=== PATIENT | female | born 1945 | race Caucasian/White ===

== ENCOUNTER → 2016-12-17 | Outpatient (CLI) | payer MEDICARE, BC ==
[~2016-12-17] MED LIST: ATEN1TAB3 PO; ATEN1TAB4 PO; CALC-53 PO; CYAN500T17 PO; DILT90TA PO; FAMO20TA5 PO; FISH1CAP PO; GABA600T2 PO; GLUC1TAB71 PO; LEVO100T5 PO; MAGN250T10 PO; MULT-212 PO; NAPR500T3 PO; OXYB1PAT4 TD; POTA10TA5 PO
--- NOTE | 2016-12-17 14:42 | KCIC ---
COMPLETE RENAL ULTRASOUND Indication: Left renal cyst. Comparison: MR abdomen with and without contrast June 07, 2016.. Procedure: Transabdominal ultrasound images are obtained of the kidneys and bladder. Findings: The kidneys demonstrate normal cortical echotexture. Corticomedullary differentiation is preserved. There is no hydronephrosis. The right kidney measures 9.1 cm. The left kidney measures 8.5 cm. In correlation with the prior MRI, complex septated cyst in the left kidney is identified sonographically and measures approximately 3.9 x 2.7 x 3.4 cm. There is increased through transmission. Single color Doppler image interrogating the lesion appears negative. Lesion is similar in size to the prior study allowing for differences in modality. The bladder appears normal. IMPRESSION: Complex septated cyst of the left kidney. Recommend renal ultrasound follow-up in 6 months. Electronically signed by: Chano Brady MD (12/17/2016 2:39 PM)
== END | disposition home or self-care (01) ==
LOC: KCIC US 10:19
PROVIDERS: ATTEND Family Medicine
DX: N28.1 Cyst of kidney, acquired (principal)
CPT/HCPCS: 76770

== ENCOUNTER → 2017-05-02 | Outpatient (CLI) | payer MEDICARE, BC ==
[~2017-05-02] MED LIST changes: -NAPR500T3 PO; +NAPR500T4 PO
--- NOTE | 2017-05-02 14:25 | KCIC ---
History: Routine screening. Technique: Bilateral digital mammographic routine views were obtained with CAD - computer aided detection. Comparison: April 20, 2014 and April 23, 2016. Findings: Breast Tissue Density C : The breast tissue is heterogeneously dense. Scattered fibroglandular elements may obscure underlying pathology. There are no suspicious masses, microcalcifications or areas of architectural distortion. Impression: No suspicious findings. BI-RADS Category 1: Negative. Normal interval followup. Your mammogram demonstrates that you have dense breast tissue, which could hide abnormalities, and if you have other risk factors for breast cancer that have been identified, you might benefit from supplemental screening tests that may be suggested by your ordering physician. Dense breast tissue, in and of itself, is a relatively common condition. This information is not provided to cause undue concern, but rather to raise your awareness and to promote discussion with your physician regarding the presence of other risk factors, in addition to dense breast tissue. A report of your mammography results will be sent to you and your physician. You should contact your physician if you have any questions or concerns regarding this report. A mammogram does not have 100% sensitivity and therefore a negative imaging study should not delay further work up of a suspicious abnormality. The patient will receive a letter with the results in the mail. Patient information is entered into the reminder system with a target due date for the next screening mammogram. The patient will receive a reminder. "Our facility is accredited by the [employer] Mammography Program." Electronically signed by: George Mcnally III, MD (05/02/2017 2:21 PM) [id number]
== END | disposition home or self-care (01) ==
LOC: KCIC MAMMO 10:16
PROVIDERS: ATTEND Family Medicine
DX: Z12.31 Encounter for screening mammogram for malignant neoplasm of breast (principal)
CPT/HCPCS: G0202; 77067

== ENCOUNTER → 2017-06-18 | Outpatient (CLI) | payer MEDICARE, BC ==
--- NOTE | 2017-06-18 13:59 | KCIC ---
COMPLETE RENAL ULTRASOUND Indication: Six-month follow-up of renal cyst. Comparison: Renal ultrasound, December 17, 2016. Procedure: Transabdominal ultrasound images are obtained of the kidneys and bladder. Findings: The kidneys demonstrate normal cortical echotexture. Corticomedullary differentiation is preserved. There is no hydronephrosis. The right kidney measures 9.3 cm. The left kidney measures 8.4 cm. In the left kidney there is a septated cyst measuring 3.4 x 3.4 x 3.2 cm. On prior study the cyst measured 3.9 x 2.7 x 3.4 cm. Allowing for differences in how the cyst was measured, there is no significant change. There is increased through transmission. Color Doppler interrogation remains negative. The urinary bladder is unremarkable. Ureteral jets are not seen. The IVC is patent. Proximal abdominal aorta is normal in caliber, remainder is obscured. IMPRESSION: No significant change of septated cyst of the left kidney. Recommend ultrasound follow-up in 6-12 months. Electronically signed by: Chano Brady MD (06/18/2017 1:56 PM) [id number]
== END | disposition home or self-care (01) ==
LOC: KCIC US 12:09
PROVIDERS: ATTEND Family Medicine
DX: N28.1 Cyst of kidney, acquired (principal)
CPT/HCPCS: 76770

== ENCOUNTER → 2017-12-10 | Outpatient (CLI) | payer MEDICARE, BC | END | disposition home or self-care (01) | LOC: KCIC US 10:57 | DX: N28.1 Cyst of kidney, acquired (principal) | CPT/HCPCS: 76770 ==

== ENCOUNTER → 2018-02-09 | Outpatient (CLI) | payer MEDICARE, BC ==
[~2018-02-09] MED LIST changes: +NAPR-514 PO; -NAPR500T4 PO; +POTA10TA12 PO; -POTA10TA5 PO
--- NOTE | 2018-02-09 15:27 | KCIC ---
MRI Cervical Spine Without Contrast History: Cervical pain, neck pain, right arm and shoulder pain, symptoms for a few months COMPARISON: Limited images from Nov 08 2010 exam although the entirety of the exam not available for review Technique: Multiplanar, multi sequential noncontrast MR imaging was performed of the cervical spine. Findings: There is some motion degradation. Cervical cord caliber is within normal limits without convincing focal signal abnormality. There is more advanced degenerative disc disease C5-C6 and to a somewhat lesser degree at C4-5 and C6-7. There is now mild grade 1 anterior spondylolisthesis at C5-C6. Cervical vertebral body stature is overall adequate. There is trace posterior C4-5 and C5-C6 endplate edema likely reactive/degenerative in etiology. There is no new significant abnormality of the cervical medullary junction. C2-C3: Neural foramina and spinal canal are adequate. There is right facet degenerative change. C3-C4: There is fairly severe right and mild left facet degenerative change. There is right uncovertebral degenerative change. There is mild narrowing of the right neural foramen, left neural foramen adequate. Spinal canal is overall adequate. C4-C5: There is minimal disc osteophyte complex is mild buckling of the ligamentum flavum. Central canal is borderline about 10 mm. There is right greater than left facet degenerative change, also right uncovertebral degenerative change. Neural foramina are mild significantly narrowed. C5-C6: There is fairly severe facet degenerative change bilaterally. There is buckling of the ligamentum flavum. There is minimal disc osteophyte complex. Central canal is narrowed to about 8 to 9 mm. Neural foramina are poorly characterized in part from motion, probable at least moderate narrowing of the left. C6-C7: There is minimal disc osteophyte complex. Spinal canal is adequate. There is right uncovertebral degenerative change, likely mild to moderate narrowing of the right neural foramen. Left neural foramen is adequate. C7-T1: Spinal canal and neural foramina are adequate. Impression: 1. Exam is degraded by some motion. There is mild spinal stenosis C5-C6. Neural foramina are poorly characterized due to motion, probable at least moderate narrowing on the left at C5-C6 and mild to moderate narrowing on the right at C6-7 in part from facet and uncovertebral degenerative change. There is degenerative disc disease greatest at C5-C6 and to a somewhat lesser degree at C4-5 and C6-7. Electronically signed by: Sinan Pagan MD (02/09/2018 3:23 PM) [facility]
== END | disposition home or self-care (01) ==
LOC: KCIC MRI 11:30
PROVIDERS: ATTEND Family Medicine
DX: M48.02 Spinal stenosis, cervical region (principal); M50.323 Other cervical disc degeneration at C6-C7 level; M25.78 Osteophyte, vertebrae; I25.10 Atherosclerotic heart disease of native coronary artery without angina pectoris
CPT/HCPCS: 72141

== ENCOUNTER → 2018-03-17 | Outpatient (CLI) | payer MEDICARE, BC ==
[~2018-03-17] MED LIST changes: +ALPR0.5T6 PO; +ASCO500C PO; +BIOT300T PO; +ECHI400C12 PO; +HYDR-2766 PO; +IOHEXOL 180 MG/ML 10 ML VIAL. ONE; +LEVO75TA5 PO; +LUTE1CAP5 PO; +TRAM50TA PO; +VITA400C37 PO; +ZINC50TA2 PO; +methylPREDNISolone ACETATE 40 MG/ML VIAL. ONE; +methylPREDNISolone ACETATE 80 MG/ML VIAL. ONE
--- NOTE | 2018-03-17 14:25 | PAIN ---
DATE OF SERVICE: 03/17/2018 INITIAL CONSULTATION FOR PAIN CLINIC CHIEF COMPLAINT: Neck and right upper extremity pain. HISTORY OF PRESENT ILLNESS: This is a 72-year-old female who presents with history of pain in the base of neck and right side of the shoulder as well as into the arm going on since about 1996, but worse than normal over the past 6-8 months. The patient reports no specific recent injury or accident that she is aware of. It has been increasing with constant pain. It is described as sharp, shooting, radiating into the right arm, numbness in the hands, especially on the right, worse during the day, worse with activities reaching over head, shows a popping sensation in the neck to which it causes some lightheadedness. Left shoulder does not seem to have much trouble. Right side is very significantly affected with radiating into the posterior triceps region as well as of the forearm, both anteriorly, posteriorly and numbness in all the fingers on the right hand. The patient reports it is worse with activity as noted, with weightbearing, repetitive motions, even holding a steering wheel with her right hand in a car and she is right handed. The patient reports it awakens her from sleep about 4-5 times a night, does not affect her bowel and bladder control, but does affect her ability to walk at times with dizziness when the pain is at its worst. The patient reports she has had previous physical therapy as well as exercise and had epidural injections in [facility] in 2013 for her low back, which helped significantly. The patient has been taking tramadol as well as hydrocodone, which do help the pain to a moderate extent. The patient reports no loss of motor function, but significant fatigability with the right arm with any repetitive motions. The patient did have an MRI scan of the cervical spine showing at C5-C6 severe facet degenerative change bilaterally, bulging ligamentum flavum with minimal disk osteophyte complex, central canal narrowed to about 8-9 mm, neural foramina poorly characterized from motion. C6-C7 shows mild disk osteophyte complex, spinal canal adequate, slight right uncovertebral degenerative change, mild to moderate narrowing at the right neural foramen and left neural foramen is adequate. The patient rates her disability rating from 0-10, 10 being the worst, is a 6 with family and home responsibilities, recreation and social activity, 4 with self care and life support activities. PAST MEDICAL HISTORY: Significant for hearing loss, cataracts, hypertension, arthritis, histoplasmosis, rotator cuff injury on the right in the past. PREVIOUS SURGERIES: Include tonsillectomy in 1950, D and C in 1969 and 1989, lower facelift in 1994, cataract extractions in the past and right carpal tunnel in the past as well. CURRENT MEDICATIONS: Include multivitamins, alprazolam, hydrocodone, tramadol, echinacea, zinc, vitamin E, ascorbic acid, Ocuvite, levothyroxine, biotin, atenolol, diltiazem, naproxen, famotidine, gabapentin, potassium, B12, magnesium, fish oil, calcium, and oxybutynin. ALLERGIES: THE PATIENT IS ALLERGIC TO ASPIRIN, GABAPENTIN AND RELAFEN. SOCIAL HISTORY: The patient does not smoke, drinks alcohol very rarely. Does not use any illegal, illicit or recreational drugs. She is single, . Lives locally in [place], [place] and currently is retired. FAMILY HISTORY: Significant for heart disease and strokes as well as arthritis. REVIEW OF SYSTEMS: The patient's review of systems is positive for those items mentioned in history of present illness. All systems were reviewed and otherwise negative. It is complete, full and well documented on the patient's chart. PHYSICAL EXAMINATION: VITAL SIGNS: Today, the patient's blood pressure is 169/83, pulse 56, respirations 18, temperature is 98.3 degrees Fahrenheit. Height 5 feet 1 inch, weight 152 pounds. GENERAL: The patient is awake, alert, oriented, appropriate, very pleasant demeanor. HEENT: Head shows normocephalic, atraumatic. Extraocular movements are intact and symmetrical. Oral cavity: Mucous membranes are moist and pink. Dentition is intact. NECK: Shows anterior throat supple without palpable lymphadenopathy noted. Swallow reflex is symmetrical. CHEST: Shows normal on inspection. Breath sounds are clear to auscultation bilaterally. HEART: Shows S1, S2 clear. No murmurs auscultated. ABDOMEN: Soft, nontender, nondistended. No palpable organomegaly is noted. No rebound or guarding demonstrated. BACK: Shows spine grossly in the midline. Normal appearing thoracic kyphosis and lumbar lordotic curvature. Cervical lordotic curvature is maintained as well. Cervical paraspinous muscle shows symmetrical on inspection, on palpation has some moderate tenderness, more on the right than the left in the superior and posterior aspect of the trapezius as well as inferior cervical paraspinous musculature, but symmetrical without trigger points, without radiation. The patient has good rotational motion of the cervical spine, both laterally greater than 45 degrees right and left as well as full extension, full forward flexion without significant pain reported. EXTREMITIES: The patient's upper extremities show deep tendon reflexes 2+ in the biceps and triceps tendons. Motor exam is 5/5 with track rider strength on the left and 4/5 on the right, but intact bicep and tricep flexion, again 4/5 on the right and 5/5 on the left. Peripheral pulses are 2+ radial distribution. No peripheral edema is noted. Shoulder shrug is strong and intact without loss of strength on resistance as is abduction of the shoulders to 90 degrees without loss of strength or resistance. SKIN: Normal, warm and dry, good turgor. No edema. No sores, rashes or bruising. IMPRESSION: 1. This is a 72-year-old female with approximately 6-8 month history of increasing pain in the base of the neck and right upper extremity in a radicular fashion. 2. MRI scan of cervical spine as noted. 3. Arthritis. 4. Hypertension. PLAN: Options were discussed with the patient including conservative medical management, physical therapies, interventional techniques and she would like to pursue interventional techniques. We discussed a cervical epidural steroid injection using descriptions as well as anatomical models to describe the procedure. Risks were then discussed including, but not limited to bleeding, infection, possibility of epidural hematoma and subsequent neurological compromise, dural puncture, headaches, spinal cord and/or nerve damage, side effects of steroid medication and poor results regarding pain control. The patient understands and wished to proceed. The patient will return to the clinic in approximately 2 weeks for followup, was counseled on return appointment, activity level and side effects to be aware of. DIAGNOSIS: Cervical radiculopathy with cervical degenerative disk disease. PROCEDURE: Cervical epidural steroid injection, translaminar approach at C6-C7 level using C-arm fluoroscopic guidance under sterile prep and drape using local anesthetic. MEDICATION INJECTED: A total of 120 mg Depo-Medrol plus 5 mL of preservative-free normal saline and 2 mL of Isovue for contrast. CONDITION AT DISCHARGE: Stable. The patient tolerated the procedure well, had no complications. JUANA PATEL MD DR: MARC/erik JOB#: [id number] / [id number] RANDI Haines MD
== END | disposition home or self-care (01) ==
LOC: PNCL 09:22
PROVIDERS: ATTEND Anesthesiology
DX: M50.123 Cervical disc disorder at C6-C7 level with radiculopathy (principal); I10 Essential (primary) hypertension; M19.90 Unspecified osteoarthritis, unspecified site; H91.90 Unspecified hearing loss, unspecified ear; Z98.890 Other specified postprocedural states; Z79.899 Other long term (current) drug therapy; Z88.6 Allergy status to analgesic agent; Z72.89 Other problems related to lifestyle; Z82.49 Family history of ischemic heart disease and other diseases of the circulatory system; Z82.3 Family history of stroke; Z82.61 Family history of arthritis; Z88.8 Allergy status to other drugs, medicaments and biological substances; Z98.49 Cataract extraction status, unspecified eye
CPT/HCPCS: 62321; J1030; J1040; Q9965

== ENCOUNTER → 2018-03-31 | Outpatient (CLI) | payer MEDICARE, BC ==
[~2018-03-31] MED LIST changes: +LIDOCAINE 2% PF 2ML VIAL. ONE
--- NOTE | 2018-03-31 15:23 | PAIN ---
DATE OF SERVICE: 03/31/2018 DIAGNOSES: Cervical radiculopathy with cervical degenerative disk disease. HISTORY OF PRESENT ILLNESS: The patient is a 73-year-old female who returns for followup status post cervical epidural steroid injection x 1. The patient reports about 40% improvement overall, still some pain in the base of the neck and right shoulder as well as right upper extremity radiating to the arm and hand. The patient reports it is a stabbing pain, it is aching, sharp, tight, becoming dull at times, radiating down the right arm, quite a while off and on, but becoming more constant at times, but much better after the injection. The patient reports she is still doing physical therapy, which has just started since her last visit, doing this twice a week and has an appointment in about 2 days from now. The patient reports the main complaint is the base of the neck and the right shoulder is most painful. The patient reports it as a 9 on a scale of 10 at its worst, 6-9 on average and 6 at its least and is a 9 today. The patient reports no new motor or sensory deficits, no new changes. She has been sleeping fairly well at night using a cervical pillow to sleep, but does awaken her over the last few days and since her last physical therapy session more frequently. The patient reports no other complaints. PHYSICAL EXAMINATION: VITAL SIGNS: The patient's blood pressure 160/87, pulse 56, respirations 16, temperature 99.5 degrees Fahrenheit, weight is 151 pounds. GENERAL: The patient is awake, alert, oriented, appropriate, very pleasant demeanor. HEENT: Head normocephalic, atraumatic. Extraocular movements are intact and symmetrical. Oral cavity: Mucous membranes moist and pink. Dentition is intact. NECK: Shows anterior throat supple without palpable lymphadenopathy. Swallow reflex symmetrical CHEST: Shows normal with inspection. Breath sounds clear to auscultation bilaterally. HEART: Shows S1, S2 clear. No murmurs auscultated. ABDOMEN: Soft, nontender, nondistended. No palpable organomegaly is noted. No rebound or guarding demonstrated. BACK: Shows spine grossly in the midline. Cervical lordotic curvature is maintained, as is thoracic kyphotic curvature. Cervical paraspinous muscle shows symmetrical on inspection and palpation shows some moderate tenderness diffusely bilaterally, but only diffusely without specific trigger points. Very firm musculature, mostly in the right trapezius, superior medial aspect as well as inferior cervical paraspinous musculature The patient has good rotational motion of cervical spine, both laterally to 45 degrees in the past without difficulty as well as extension and flexion without difficulty. EXTREMITIES: Upper extremities show deep tendon reflexes 2+ in the biceps and triceps tendon. Motor exam is strong with 5/5 chief recordist strength, bicep and tricep flexion and symmetrical. Peripheral pulses are 2+ radial distribution. No peripheral edema is noted. Options were discussed with the patient. The patient's old chart was reviewed as her current medication regimen updated. Current review of systems updated today as well. We will proceed with a second in the series of cervical epidural steroid injection today with fluoroscopic guidance. Risks were again discussed including, but not limited to bleeding, infection, possibility of epidural hematoma, subsequent neurological compromise, dural puncture, headaches, spinal cord and/or nerve damage, side effects of steroid medication and poor results regarding pain control. The patient understands and wished to proceed. The patient to return to clinic in approximately 2 weeks for followup, was counseled on return appointment, activity level and side effects to be aware of. DIAGNOSES: Cervical radiculopathy with cervical degenerative disk disease. PROCEDURE: Cervical epidural steroid injection, translaminar approach C6-C7 level using C-arm fluoroscopic guidance under sterile prep and drape using local anesthetic. MEDICATION INJECTED: A total of 120 mg Depo-Medrol, plus 5 mL of preservative free normal saline and 2 mL of Isovue for contrast. CONDITION AT DISCHARGE: Stable. The patient tolerated the procedure well, had no complications. JUANA PATEL MD DR: MARC/erik JOB#: [id number] / [id number]
== END | disposition home or self-care (01) ==
LOC: PNCL 09:30
PROVIDERS: ATTEND Anesthesiology
DX: M50.123 Cervical disc disorder at C6-C7 level with radiculopathy (principal); Z88.6 Allergy status to analgesic agent; Z88.8 Allergy status to other drugs, medicaments and biological substances
CPT/HCPCS: 62321; J1030; J1040; J2001; Q9965

== ENCOUNTER → 2018-04-06 | Outpatient (CLI) | payer MEDICARE, BC ==
[~2018-04-06] MED LIST changes: -IOHEXOL 180 MG/ML 10 ML VIAL. ONE; -LIDOCAINE 2% PF 2ML VIAL. ONE; -methylPREDNISolone ACETATE 40 MG/ML VIAL. ONE; -methylPREDNISolone ACETATE 80 MG/ML VIAL. ONE
--- NOTE | 2018-04-06 16:09 | KCIC ---
2 view study of the left hand Clinical indications: Cat bite involving the third metacarpal region with swelling. Fines: No acute fracture or dislocation or osteolytic process is seen. No radiopaque foreign body is evident. Degenerative osteoarthritis of the interphalangeal joints and the first carpal metacarpal joint is seen. IMPRESSION: No acute osseous abnormality. Electronically signed by: Vern Hunt MD (04/06/2018 4:05 PM) [facility]
== END | disposition home or self-care (01) ==
LOC: KCIC 14:49
PROVIDERS: ATTEND Nurse Practitioner Family
DX: S60.572A Other superficial bite of hand of left hand, initial encounter (principal); M19.042 Primary osteoarthritis, left hand; W55.01XA Bitten by cat, initial encounter; Y93.89 Activity, other specified; Y92.89 Other specified places as the place of occurrence of the external cause; Y99.8 Other external cause status
CPT/HCPCS: 73120

== ENCOUNTER → 2018-04-09 | Outpatient (CLI) | payer MEDICARE, BC ==
[~2018-04-09] MED LIST changes: +CLIN150C14 PO; +GADOBUTROL 7.5 MMOL/7.5 ML VIAL IV ONE; +SULF1TAB24 PO
--- NOTE | 2018-04-09 15:33 | KCIC ---
MRI left hand with and without contrast dated 04/09/2018. No comparison available. CLINICAL INDICATION: Pain after injury. Cat bite. Swelling and pain. TECHNIQUE: Routine multiplanar multisequence MR imaging left hand performed with and without the administration of 60 cc Gadavist. FINDINGS: T2 hyperintense signal abnormality and enhancement within the subcutaneous tissues of the dorsal hand. There is also edema and enhancement along the second through fifth extensor tendons. No evidence of tendon tear. No drainable fluid collection. Marrow signal is homogeneous. No barium marrow edema or destructive process. The flexor tendons and carpal tunnel are intact. Mild to moderate degenerative change of the first carpometacarpal joint, scaphotrapezial joint and first MTP joint. IMPRESSION: 1. Edema and enhancement within the dorsal hand subcutaneous tissues, nonspecific but possibly related to cellulitis. There is no evidence of abscess. 2. Edema extends along the extensor tendon sheaths, infectious versus reactive tenosynovitis. 3. No acute bony abnormality. Degenerative changes as described above. Electronically signed by: Jules Cerda MD (04/09/2018 3:30 PM) [id number]
== END | disposition home or self-care (01) ==
LOC: KCIC MRI 12:58
PROVIDERS: ATTEND Nurse Practitioner Family
DX: S60.572A Other superficial bite of hand of left hand, initial encounter (principal); R60.1 Generalized edema; W55.01XA Bitten by cat, initial encounter; Y93.89 Activity, other specified; Y92.89 Other specified places as the place of occurrence of the external cause; Y99.8 Other external cause status
CPT/HCPCS: 73220; 82565; A9585

== ENCOUNTER 2018-04-22 11:16 | Emergency (ER) | payer MEDICARE, BC ==
[~2018-04-22] VITALS: Ht 154.9 cm; Wt 67.1 kg
[~2018-04-22 11:16] MED LIST changes: -CLIN150C14 PO; -GADOBUTROL 7.5 MMOL/7.5 ML VIAL IV ONE; -SULF1TAB24 PO
[2018-04-22 12:22] VITALS: BP 169/80
[2018-04-22] MEDS ORDERED: VANCOMYCIN PER PHARMACY MC PRN (12:30)
[2018-04-22] MEDS: PIPERACILLIN/TAZOBACTAM 4.5 GM in IV NORMAL SALINE 100ML 100 ML IV ONE (12:47)
[2018-04-22] MEDS: IV NORMAL SALINE 1000ML BAG 1,000 ML IV ONE (12:47)
[2018-04-22 12:52] LABS: BASO # 0.1 x10^3/uL (0.0-0.2); BASO % 1 % (0-3); EOS # 0.1 x10^3/uL (0.0-0.7); EOS % 2 % (0-3); HEMATOCRIT 43.9 % (36.0-47.0); HEMOGLOBIN 15.4 g/dL (12.0-15.5); LYMPH # 1.4 x10^3/uL (1.0-4.8); LYMPH % 18 % (24-48); MEAN CORPUSCULAR HEMOGLOBIN 34 pg (25-35); MEAN CORPUSCULAR HGB CONC 35 g/dL (31-37); MEAN CORPUSCULAR VOLUME 96 fL (79-100); MONO # 0.6 x10^3/uL (0.0-1.1); MONO % 8 % (0-9); NEUT # 5.7 x10^3uL (1.8-7.7); NEUT % 71 % (31-73); PLATELET COUNT 380 x10^3/uL (140-400); RED BLOOD COUNT 4.59 x10^6/uL (3.50-5.40); RED CELL DISTRIBUTION WIDTH 13.1 % (11.5-14.5); WHITE BLOOD COUNT 7.9 x10^3/uL (4.0-11.0)
[2018-04-22 13:10] LABS: CALCIUM 10.1 mg/dL (8.5-10.1); GFR 54.5; POTASSIUM 3.9 mmol/L (3.5-5.1)
[2018-04-22 13:13] LABS: C-REACTIVE PROTEIN 5.5 mg/L (0-3.3)
[2018-04-22] MEDS: VANCOMYCIN 1.75 GM in IV NORMAL SALINE 500ML BAG 500 ML IV ONE (13:29)
[2018-04-22] MEDS ORDERED: MORPHINE SULFATE 4 MG/ML VIAL. IV PRN (14:30)
[2018-04-22] MEDS ORDERED: ONDANSETRON PF 4 MG/2 ML VIAL. IV PRN ×2 (14:30→16:30)
--- NOTE | 2018-04-22 14:33 | PHYS DOC ---
Past Medical History Past Medical History: Arthritis, Hypertension, Pneumonia, Stroke Past Surgical History: Tonsillectomy, Other Additional Past Surgical Histo: FIBROID REMOVAL, FACE LIFT Alcohol Use: Occasionally Drug Use: None Adult General Chief Complaint Chief Complaint: ANIMAL BITE HPI HPI Patient is a 73 year old female with a history of hypertension, arthritis, who presents today with an extensive story about a cat bite to the left hand. Patient states on April 04, 2018 her own cat threw a "male hissy fit" and bit her. She states she followed up with her own doctor, she states she was given Rocephin injection and started on Augmentin. Patient states she noted swelling on the left hand, patient states she went back to the doctor, she states she was given Levaquin and another Rocephin injection. Patient states symptoms did not improve. She went back and was given Rocephin injection again. Patient states she was referred to be seen by infectious disease. Patient states infectious disease clinic called her and told her they cannot see her until next month. Patient states she cannot wait until then, she states she needs to be seen by infectious disease right now. Patient is very frustrated by her own PCP. She states she does not want to be seen by the PCP because the PCP is semiretired and hard to get in the office to be seen she states there is alot communication problems with the PCP. Patient denies any fever. Denies any nausea vomiting. She states her own cat that bite her has HIV. Patient also states she does not have an ideal living condition, she states she stays by herself and does not have anyone to help her. She states her car is over 20 years old and does not go too far because it has bearing problems. She states itis hard for her to see doctors that are located far away. She states she was referred to infectious disease but the location is on [facility]. Patient states there is no way she can drive that far because she has neck problems. She states everybody she knows has in the last 7 days and most of those living have medical problems. She states she has no family. She states she has a male friend who helps her but he is always upset when she has to asks questions. PCP Dr. Yohana Montelongo Neurosurgery Dr. Anderson Review of Systems Review of Systems Constitutional: Denies fever or chills [] Eyes: Denies change in visual acuity, redness, or eye pain [] HENT: Denies nasal congestion or sore throat [] Respiratory: Denies cough or shortness of breath [] Cardiovascular: No additional information not addressed in HPI [] GI: Denies abdominal pain, nausea, vomiting, bloody stools or diarrhea [] : Denies dysuria or hematuria [] Musculoskeletal: Denies back pain or joint pain [] Integument: Reports cat bite to the left hand Neurologic: Denies headache, focal weakness or sensory changes [] All other systems were reviewed and found to be within normal limits, except as documented in this note. Current Medications Current Medications Current Medications Medications (Trade) Dose Ordered Sig/Srinivasa Start Time Stop Time Status Last Admin Dose Admin Morphine Sulfate (Morphine Sulfate) 4 mg PRN Q2HR PRN 04/22/18 14:30 04/23/18 14:29 Ondansetron HCl (Zofran) 4 mg PRN Q8HRS PRN 04/22/18 14:30 04/23/18 14:29 Piperacillin Sod/ Tazobactam Sod 3.375 gm/Sodium Chloride 50 ml @ 100 mls/hr TID 04/22/18 21:00 UNV Piperacillin Sod/ Tazobactam Sod 4.5 gm/Sodium Chloride 100 ml @ 200 mls/hr 1X ONCE 04/22/18 12:30 04/22/18 12:59 DC 04/22/18 12:47 200 MLS/HR Sodium Chloride 1,000 ml @ 1,000 mls/hr 1X ONCE 04/22/18 12:30 04/22/18 13:29 DC 04/22/18 12:47 1,000 MLS/HR Vancomycin HCl (Vanco Per Pharmacy) 1 each PRN DAILY PRN 04/22/18 12:30 UNV Vancomycin HCl 1.75 gm/Sodium Chloride 500 ml @ 250 mls/hr 1X ONCE 04/22/18 13:00 04/22/18 14:59 DC 04/22/18 13:29 250 MLS/HR Allergies Allergies Allergies Coded Allergies Type Severity Reaction Last Updated Verified aspirin Allergy Intermediate Nausea and Vomiting 11/19/13 Yes nabumetone Allergy Intermediate Hives 11/19/13 Yes gabapentin Adverse Reaction Intermediate 04/09/18 No Physical Exam Physical Exam Constitutional: Well developed, well nourished, no acute distress, non-toxic appearance. [] HENT: Normocephalic, atraumatic, bilateral external ears normal, oropharynx moist, no oral exudates, nose normal. [] Eyes: PERRLA, EOMI, conjunctiva normal, no discharge. [] Neck: Normal range of motion, no tenderness, supple, no stridor. [] Cardiovascular:Heart rate regular rhythm, no murmur [] Lungs & Thorax: Bilateral breath sounds clear to auscultation [] Abdomen: Bowel sounds normal, soft, no tenderness, no masses, no pulsatile masses. [] Skin: Warm, dry, left dorsal hand proximal end with an isolated area of soft tissue swelling along the index finger and ring finger metatarsal. The area is not warm. The area is tender to touch. No redness. No fluctuance to the area. Neurovascular exam is intact to the left upper extremity. Full ROM to the left hand Back: No tenderness, no CVA tenderness. [] Extremities: No tenderness, no cyanosis, no clubbing, ROM intact, no edema. [] Neurologic: Alert and oriented X 3, normal motor function, normal sensory function, no focal deficits noted. [] Psychologic: Flat affect Current Patient Data Vital Signs Vital Signs Date Time Temp Pulse Resp B/P (MAP) Pulse Ox O2 Delivery O2 Flow Rate FiO2 04/22/18 12:22 97.9 63 18 169/80 (109) 97 Room Air 97.9 Lab Values Laboratory Tests Test 04/22/18 12:38 White Blood Count 7.9 x10^3/uL (4.0-11.0) Red Blood Count 4.59 x10^6/uL (3.50-5.40) Hemoglobin 15.4 g/dL (12.0-15.5) Hematocrit 43.9 % (36.0-47.0) Mean Corpuscular Volume 96 fL (79-100) Mean Corpuscular Hemoglobin 34 pg (25-35) Mean Corpuscular Hemoglobin Concent 35 g/dL (31-37) Red Cell Distribution Width 13.1 % (11.5-14.5) Platelet Count 380 x10^3/uL (140-400) Neutrophils (%) (Auto) 71 % (31-73) Lymphocytes (%) (Auto) 18 % (24-48) L Monocytes (%) (Auto) 8 % (0-9) Eosinophils (%) (Auto) 2 % (0-3) Basophils (%) (Auto) 1 % (0-3) Neutrophils # (Auto) 5.7 x10^3uL (1.8-7.7) Lymphocytes # (Auto) 1.4 x10^3/uL (1.0-4.8) Monocytes # (Auto) 0.6 x10^3/uL (0.0-1.1) Eosinophils # (Auto) 0.1 x10^3/uL (0.0-0.7) Basophils # (Auto) 0.1 x10^3/uL (0.0-0.2) Erythrocyte Sedimentation Rate 39 (0-25) H Sodium Level 136 mmol/L (136-145) Potassium Level 3.9 mmol/L (3.5-5.1) Chloride Level 97 mmol/L (98-107) L Carbon Dioxide Level 28 mmol/L (21-32) Anion Gap 11 (6-14) Blood Urea Nitrogen 14 mg/dL (7-20) Creatinine 1.0 mg/dL (0.6-1.0) Estimated GFR (Cockcroft-Gault) 54.5 Glucose Level 105 mg/dL (70-99) H Calcium Level 10.1 mg/dL (8.5-10.1) C-Reactive Protein, Quantitative 5.5 mg/L (0-3.3) H Laboratory Tests 04/22/18 12:38 Laboratory Tests 04/22/18 12:38 EKG EKG [] Radiology/Procedures Radiology/Procedures [] Course & Med Decision Making Course & Med Decision Making Pertinent Labs and Imaging studies reviewed. (See chart for details) This is a 73-year-old female patient presenting to the ED today with cat bite to the left hand that happened April 04, 2018. See history of present illness. Patient has been through multiple antibiotics. She had an MRI done on 04/09/2018 which showed edema and enhancement within the dorsal hand subcutaneous tissue no specific but possibly related to cellulitis, no evidence of an abscess. The edema extends to the extensor tendon sheaths infectious vs reactive tenosynovitis. CBC with a normal WBC. Consulted with and patient was admitted. Blood cultures obtained, she was started on Zosyn and vancomycin. Dr. Erazo came and saw patient. She decided she wants to be discharged. I sent her home on Clindamycin and Bactrim. Jackelin Disclaimer Jackelin Disclaimer This electronic medical record was generated, in whole or in part, using a voice recognition dictation system. Departure Departure Impression: Primary Impression: Cat bite of left hand Additional Impression: Cellulitis of left hand Disposition: HOME, SELF-CARE Condition: STABLE Referrals: NO PCP (PCP) KASSIDY RAMOS MD follow up as soon as you can YSABEL MONTELONGO MD follow up as soon as you can Patient Instructions: Animal Bite, Cellulitis, [id number] Additional Instructions: You were seen for cat bite to the left hand. Please follow up with infectious disease as soon as you can. Scripts Sulfamethoxazole/Trimethoprim (BACTRIM DS TABLET) 1 Each Tablet 1 TAB PO BID, #20 TAB Prov: REUBEN MORALES APRN 04/22/18 Clindamycin Hcl (CLINDAMYCIN HCL) 150 Mg Capsule 300 MG PO TID, #60 CAP Prov: REUBEN MORALES APRN 04/22/18 Problem Qualifiers Primary Impression: Cat bite of left hand Encounter type: initial encounter Qualified Codes: S61.452A - Open bite of left hand, initial encounter; W55.01XA - Bitten by cat, initial encounter REUBEN MORALES APRN Apr 22, 2018 14:33
[2018-04-22] MEDS ORDERED: CLIN150C14 PO (15:22)
[2018-04-22] MEDS ORDERED: SULF1TAB24 PO (15:22)
--- NOTE | 2018-04-22 16:28 | PDOC1 ---
History and Physical Date of Admission Date of Admission 04/22/18 Identification/Chief Complaint Chief Complaint cat bite Source Source: Patient History of Present Illness History of Present Illness HPI HPI Patient is a 73 year old female with a history of hypertension, arthritis, came to ER for cat bite. She was bitten by her own cat 3 weeks ago, on left hand. She received severe abx as outpt including augmentin x3ds, levaquin x7ds x2 times, rocephin iv x3 times over 2 weeks in the PCP office. The redness and pain is better, but she still feels the lump at bite site and could not move the fingers as before, so came to ER, and require to see ID since her ID outpt cannot see her till Apr. no fever, chills, sob, chest pain. MRI 12ds ago ruled out abcess. PCP Dr. Muller Ortho Dr. Montelongo Neurosurgery Dr. Anderson Past Medical History Cardiovascular: HTN Past Surgical History Past Surgical History onsillectomy, Other Additional Past Surgical Histo: FIBROID REMOVAL, FACE LIFT Social History Smoke: No ALCOHOL: none Drugs: None Current Problem List Problem List Problems Medical Problems: (1) Cat bite of left hand Status: Acute (2) Cellulitis of left hand Status: Acute Current Medications Current Medications Current Medications Medications (Trade) Dose Ordered Sig/Srinivasa Start Time Stop Time Status Last Admin Dose Admin Morphine Sulfate (Morphine Sulfate) 4 mg PRN Q2HR PRN 04/22/18 14:30 04/22/18 16:16 DC Ondansetron HCl (Zofran) 4 mg PRN Q8HRS PRN 04/22/18 14:30 04/22/18 16:16 DC Piperacillin Sod/ Tazobactam Sod 3.375 gm/Sodium Chloride 50 ml @ 100 mls/hr Q6HRS 04/22/18 18:00 04/22/18 18:00 DC Piperacillin Sod/ Tazobactam Sod 4.5 gm/Sodium Chloride 100 ml @ 200 mls/hr 1X ONCE 04/22/18 12:30 04/22/18 12:59 DC 04/22/18 12:47 200 MLS/HR Sodium Chloride 1,000 ml @ 1,000 mls/hr 1X ONCE 04/22/18 12:30 04/22/18 13:29 DC 04/22/18 12:47 1,000 MLS/HR Vancomycin HCl (Vanco Per Pharmacy) 1 each PRN DAILY PRN 04/22/18 12:30 04/22/18 16:16 DC Vancomycin HCl 1.75 gm/Sodium Chloride 500 ml @ 250 mls/hr 1X ONCE 04/22/18 13:00 04/22/18 14:59 DC 04/22/18 13:29 250 MLS/HR Allergies Allergies Allergies Coded Allergies Type Severity Reaction Last Updated Verified aspirin Allergy Intermediate Nausea and Vomiting 11/19/13 Yes nabumetone Allergy Intermediate Hives 11/19/13 Yes gabapentin Adverse Reaction Intermediate 04/09/18 No ROS Review of System CONSTITUTIONAL: No fever or chills EYES: No recent changes SKIN: No rash or itching CARDIOVASCULAR: No chest pain, syncope, palpitations, or edema RESPIRATORY: No SOB or cough GASTROINTESTINAL: No nausea, vomiting or abdominal pain NEUROLOGICAL: No headaches or weakness ENDOCRINE: No cold or heat intolerance GENITOURINARY: No urgency or frequency of urination MUSCULOSKELETAL: No back pain or joint pain LYMPHATICS: No enlarged lymph nodes PSYCHIATRIC: No anxiety or depression Physical Exam Physical Exam GEN.: No apparent distress. Alert and oriented. HEENT: Head is normocephalic, atraumatic NECK: Supple. LUNGS: Clear to auscultation. HEART: RRR, S1, S2 present. Peripheral pulses intact ABDOMEN: Soft, nontender. Positive bowel sounds. EXTREMITIES: Without any cyanosis. left hand dorsal aspect has a small lump about 2cm, no open wound seen, mild tenderness, no redness. pt can move fingers ok but not fully bend. NEUROLOGIC: Normal speech, normal tone PSYCHIATRIC: Normal affect, normal mood. SKIN: No ulcerations Vitals Vitals Vital Signs Date Time Temp Pulse Resp B/P (MAP) Pulse Ox O2 Delivery O2 Flow Rate FiO2 04/22/18 12:22 97.9 63 18 169/80 (109) 97 Room Air 97.9 Labs Labs Laboratory Tests Test 04/22/18 12:38 White Blood Count 7.9 x10^3/uL (4.0-11.0) Red Blood Count 4.59 x10^6/uL (3.50-5.40) Hemoglobin 15.4 g/dL (12.0-15.5) Hematocrit 43.9 % (36.0-47.0) Mean Corpuscular Volume 96 fL (79-100) Mean Corpuscular Hemoglobin 34 pg (25-35) Mean Corpuscular Hemoglobin Concent 35 g/dL (31-37) Red Cell Distribution Width 13.1 % (11.5-14.5) Platelet Count 380 x10^3/uL (140-400) Neutrophils (%) (Auto) 71 % (31-73) Lymphocytes (%) (Auto) 18 % (24-48) Monocytes (%) (Auto) 8 % (0-9) Eosinophils (%) (Auto) 2 % (0-3) Basophils (%) (Auto) 1 % (0-3) Neutrophils # (Auto) 5.7 x10^3uL (1.8-7.7) Lymphocytes # (Auto) 1.4 x10^3/uL (1.0-4.8) Monocytes # (Auto) 0.6 x10^3/uL (0.0-1.1) Eosinophils # (Auto) 0.1 x10^3/uL (0.0-0.7) Basophils # (Auto) 0.1 x10^3/uL (0.0-0.2) Erythrocyte Sedimentation Rate 39 (0-25) Sodium Level 136 mmol/L (136-145) Potassium Level 3.9 mmol/L (3.5-5.1) Chloride Level 97 mmol/L (98-107) Carbon Dioxide Level 28 mmol/L (21-32) Anion Gap 11 (6-14) Blood Urea Nitrogen 14 mg/dL (7-20) Creatinine 1.0 mg/dL (0.6-1.0) Estimated GFR (Cockcroft-Gault) 54.5 Glucose Level 105 mg/dL (70-99) Calcium Level 10.1 mg/dL (8.5-10.1) C-Reactive Protein, Quantitative 5.5 mg/L (0-3.3) Laboratory Tests Test 04/22/18 12:38 White Blood Count 7.9 x10^3/uL (4.0-11.0) Red Blood Count 4.59 x10^6/uL (3.50-5.40) Hemoglobin 15.4 g/dL (12.0-15.5) Hematocrit 43.9 % (36.0-47.0) Mean Corpuscular Volume 96 fL (79-100) Mean Corpuscular Hemoglobin 34 pg (25-35) Mean Corpuscular Hemoglobin Concent 35 g/dL (31-37) Red Cell Distribution Width 13.1 % (11.5-14.5) Platelet Count 380 x10^3/uL (140-400) Neutrophils (%) (Auto) 71 % (31-73) Lymphocytes (%) (Auto) 18 % (24-48) Monocytes (%) (Auto) 8 % (0-9) Eosinophils (%) (Auto) 2 % (0-3) Basophils (%) (Auto) 1 % (0-3) Neutrophils # (Auto) 5.7 x10^3uL (1.8-7.7) Lymphocytes # (Auto) 1.4 x10^3/uL (1.0-4.8) Monocytes # (Auto) 0.6 x10^3/uL (0.0-1.1) Eosinophils # (Auto) 0.1 x10^3/uL (0.0-0.7) Basophils # (Auto) 0.1 x10^3/uL (0.0-0.2) Erythrocyte Sedimentation Rate 39 (0-25) Sodium Level 136 mmol/L (136-145) Potassium Level 3.9 mmol/L (3.5-5.1) Chloride Level 97 mmol/L (98-107) Carbon Dioxide Level 28 mmol/L (21-32) Anion Gap 11 (6-14) Blood Urea Nitrogen 14 mg/dL (7-20) Creatinine 1.0 mg/dL (0.6-1.0) Estimated GFR (Cockcroft-Gault) 54.5 Glucose Level 105 mg/dL (70-99) Calcium Level 10.1 mg/dL (8.5-10.1) C-Reactive Protein, Quantitative 5.5 mg/L (0-3.3) VTE Prophylaxis Ordered VTE Prophylaxis Devices: Yes VTE Pharmacological Prophylaxi: Yes Assessment/Plan Assessment/Plan left hand wound with cat bite htn OA plan: id, ortho consult add augmentin for now it is healing. pt doesnot wanna stay in hosp. i told ER [employer],. ANA JOHNSON MD Apr 22, 2018 16:28
[2018-04-22] MEDS ORDERED: MORPHINE SULFATE 2 MG/ML VIAL. IV PRN (16:30)
[2018-04-22] MEDS ORDERED: DOCUSATE SODIUM 100 MG CAPSULE. PO PRN (16:30)
[2018-04-22] MEDS ORDERED: ACETAMINOPHEN 325 MG TABLET. PO PRN (16:30)
[2018-04-22] MEDS ORDERED: traMADol 50 MG TABLET PO PRN (16:30)
[2018-04-22] MEDS ORDERED: PIPERACILLIN/TAZOBACTAM 3.375 GM in IV NORMAL SALINE 50ML 50 ML IV SCH (18:00)
[2018-04-22] MEDS ORDERED: AMOXICILLIN/K CLAV 875/125MG TABLET. PO SCH (21:00)
== END 2018-04-22 16:16 | disposition home or self-care (01) ==
LOC: ER 11:16 → UNDOADMIN 14:08 → 5 NORTH 14:08 → ER 16:16
DX: S61.452A Open bite of left hand, initial encounter (principal); L03.114 Cellulitis of left upper limb; M19.042 Primary osteoarthritis, left hand; I10 Essential (primary) hypertension; Z90.89 Acquired absence of other organs; Z88.6 Allergy status to analgesic agent; Z88.8 Allergy status to other drugs, medicaments and biological substances; Z86.73 Personal history of transient ischemic attack (TIA), and cerebral infarction without residual deficits; W55.01XA Bitten by cat, initial encounter; Y93.89 Activity, other specified; Y92.89 Other specified places as the place of occurrence of the external cause; Y99.8 Other external cause status
CPT/HCPCS: 36415; 80048; 85025; 85651; 86140; 87040; 96365; 96366; 96367; 99285; J2543; J3370; J7030; J7040

== ENCOUNTER → 2018-05-25 | Outpatient (CLI) | payer MEDICARE, BC ==
[~2018-05-25] MED LIST changes: -BIOT300T PO; +BIOT300T2 PO; +CLIN150C14 PO; -HYDR-2766 PO; +HYDR-2769 PO; +SULF1TAB24 PO
--- NOTE | 2018-05-25 11:52 | KCIC ---
Bilateral digital screening mammograms: Reason for examination: Routine screening. Comparison is made to previous studies dated back to 04/21/2015. Interpretation was made with the benefit of CAD. The skin and nipples show no abnormalities. No abnormal axillary lymph nodes are seen. The breast parenchyma is heterogeneously dense. (Breast density: Category C) There are no dominant masses, suspicious calcifications or architectural distortion. Benign calcifications are again seen. Impression: No evidence of malignancy. Recommend routine screening. Your patient's mammogram demonstrates that she has dense breast tissue (breast density category C or D), which could hide abnormalities, and if she has other risk factors for breast cancer that have been identified, she might benefit from supplemental screening tests that may be suggested by you as her ordering physician. Dense breast tissue, in and of itself, is a relatively common condition. Therefore, this information is not provided to cause undue concern, but rather to raise your awareness and to promote discussion with your patient regarding the presence of other risk factors, in addition to dense breast tissue. Your patient's mammography results will be sent to her. BI-RADS Category 2: Benign. "Our facility is accredited by the [employer] Mammography Program." This patient's information has been entered into a reminder system for the patient to be notified with the results of her examination and a target date for the next mammogram. Electronically signed by: Francesca Ojeda MD (05/25/2018 11:48 AM) [id number]
--- NOTE | 2018-05-25 15:44 | KCIC ---
Renal sonography Clinical indications: Renal cyst follow-up COMPARISON: December 10, 2017. FINDINGS: The longitudinal and AP and transverse dimensions of the right kidney are 10.3 cm and 4.8 cm and 5.7 cm respectively. No renal mass or hydronephrosis is seen on the right side. The longitudinal and AP and transverse dimensions of the left kidney are 9.8 cm and 4.4 cm and 3.6 cm respectively. Again seen is a complex cyst of the mid aspect of the left kidney which measures 3.2 cm x 2.7 cm x 2.5 cm in size. It measured 3.3 cm x 3.2 cm x 3.1 cm in size on the previous study. Therefore, it has decreased slightly in size. No hydronephrosis is seen on the left side. The urinary bladder is not distended. IMPRESSION: No hydronephrosis. Decrease in size of complex cyst of the left kidney. Electronically signed by: Vern Hunt MD (05/25/2018 3:40 PM) [id number]
== END | disposition home or self-care (01) ==
LOC: KCIC US 09:42
PROVIDERS: ATTEND Family Medicine
DX: Z12.31 Encounter for screening mammogram for malignant neoplasm of breast (principal); N28.1 Cyst of kidney, acquired
CPT/HCPCS: 76770; 77067

== ENCOUNTER → 2018-07-31 | Outpatient (CLI) | payer MEDICARE, BC ==
[~2018-07-31] MED LIST changes: -GABA600T2 PO; +GABA600T7 PO
--- NOTE | 2018-07-31 13:22 | KCIC ---
MRI Lumbar Spine without contrast History: Lumbar back pain worse the last week, right radiculopathy Technique: Multiplanar, multi sequential noncontrast MR imaging was performed of the lumbar spine. Comparison: None Findings: Lumbar vertebral body stature is overall maintained. There is grade 1 anterior spondylolisthesis at L4-5 and to a lesser degree at L3-4. There is fairly advanced degenerative disc disease at L4-5, to lesser degree at L3-4, minimally at L2-3. Conus terminates at L1. There is no significant marrow edema. There is exophytic T2 hyperintense lesion of the anterior left kidney with probable septation overall size about 3.4 cm. This is not fully included. L1-L2: Neural foramina and spinal canal are adequate. There is mild buckling of the ligamentum flavum and facet degenerative change. L2-L3: There is moderate buckling of the ligamentum flavum and mild facet degenerative change. There is minimal bulge. There is a tiny extrusion extending above the intervertebral disc space in the left lateral recess. There is mild narrowing of the far left lateral recess. Neural foramina are overall adequate. Previously seen extrusion posterior to the mid aspect of the left L2 vertebral body is no longer visualized. L3-L4: There is again severe buckling of the ligamentum flavum and moderate to severe facet degenerative change. There is fluid in the facet articulations bilaterally greater on the left. There is mild partial uncovering of the posterior aspect of the disc and superimposed bulge. Degree of grade 1 anterior spondylolisthesis is somewhat greater than previously. Combination of findings results in fairly severe spinal stenosis with limited preserved subarachnoid space, lateral recess stenosis bilaterally. Previously seen synovial cyst in the anterior far right lateral recess is no longer visualized. There is mild neural foramina compromise bilaterally. L4-L5: There is fairly severe facet degenerative change. There is moderate to severe buckling of the ligamentum flavum. There is partial uncovering of the posterior aspect of the disc due to spondylolisthesis. There is moderate to severe spinal stenosis, some preserved subarachnoid space more centrally. There is lateral recess stenosis bilaterally with contact of the descending L5 nerve roots. There is [id number] narrowing of the left neural foramen, right neural foramen overall adequate. L5-S1: Spinal canal and neural foramina are adequate. There is moderate left and mild right facet degenerative change. Impression: 1. There is fairly severe spinal stenosis at L3-4 and to lesser degree at L4-5 as described, lateral recess stenosis bilaterally at these levels. There is grade 1 anterior spondylolisthesis L3-4 and L4-5, increased at L3-4 in the interval. There is degenerative disc disease greatest at L3-4 and L4-5. There is mild to moderate narrowing of the left L4-5 neural foramen, minimal narrowing bilaterally at L3-4. 2. There is septated cyst of the left kidney, evaluated on previous ultrasound exams. Electronically signed by: Sinan Pagan MD (07/31/2018 1:18 PM) [id number]
== END | disposition home or self-care (01) ==
LOC: KCIC MRI 11:37
PROVIDERS: ATTEND Family Medicine
DX: M48.061 Spinal stenosis, lumbar region without neurogenic claudication (principal); M43.16 Spondylolisthesis, lumbar region; M51.36 Other intervertebral disc degeneration, lumbar region; N28.1 Cyst of kidney, acquired
CPT/HCPCS: 72148

== ENCOUNTER → 2018-08-14 | Outpatient (CLI) | payer MEDICARE, BC ==
[~2018-08-14] MED LIST changes: +IOHEXOL 180 MG/ML 10 ML VIAL. ONE; +methylPREDNISolone ACETATE 40 MG/ML VIAL. ONE; +methylPREDNISolone ACETATE 80 MG/ML VIAL. ONE
--- NOTE | 2018-08-14 20:03 | PAIN ---
DATE OF SERVICE: 08/14/2018 PROGRESS NOTE FOR PAIN CLINIC: DIAGNOSES: 1. Cervical radiculopathy with cervical degenerative disk disease. 2. Lumbar radiculopathy with lumbar degenerative disk disease, lumbar spinal stenosis. HISTORY OF PRESENT ILLNESS: The patient is a 73-year-old female who returns for followup status post cervical epidural steroid injection x 2. The patient did very well with these, the last one was 03/31/2018 with approximately 75% improvement initially. The patient reports that her back has begun to become her main issue over the past 2 months or so with low back pain in the bilateral posterior gluteus, lateral anterior thigh, anterior medial thigh on the right greater than the left, but also in the left posterior gluteus and posterior thigh. The patient reports it is going into her lower leg on the right side and into the ankle. The patient pains it is aching, sharp, shooting, stabbing, tingling, cramping and aching, becoming more constant with radiation and has gone below the knee now for the first time. The patient reports it is a 10 on a scale of 10 on its worst, 8 on average, 6-7 at its least and is a 7 today. The patient reports no new motor or sensory deficits, no new bowel or bladder incontinence. The patient did have a new MRI scan of the lumbar spine, which we discussed with her showing fairly severe spinal stenosis at L3-L4 and to a lesser degree L4-L5 with lateral recess stenosis bilaterally at these levels with anterior spondylolisthesis L3-L4 and L4-L5, increased at L3-L4 in the interval from the last exam, degenerative disk disease at L3-L4 and L4-L5 with [id number] narrowing at left L4-L5, neural foramen minimally narrowed bilaterally at L3-L4. The patient reports it has been waking her from sleep at night, worse with walking, standing, change in positions. Neck and shoulder doing much better, but the low back especially the right lower extremity with radicular pain significantly increasing is waking her from sleep about every 4 hours. She needs to reposition but cannot always get back to sleep secondary to the pain, reports no significant loss of motor function, but significant fatigability is present in the right leg with walking more than about 10 minutes, decreased with sitting or lying down. PHYSICAL EXAMINATION: VITAL SIGNS: The patient's blood pressure 147/76, pulse 54, respirations are 18, temperature 98.4 degrees Fahrenheit, height is 5 feet 1 inch, weight 144 pounds. GENERAL: The patient is awake, alert, oriented, appropriate, very pleasant demeanor. HEENT: Head shows normocephalic, atraumatic. Extraocular movements are intact and symmetrical. Oral cavity: Mucous membranes moist and pink. Dentition is intact. NECK: Shows anterior throat supple without palpable lymphadenopathy noted. Swallow reflex symmetrical. CHEST: Shows normal with inspection. Breath sounds clear to auscultation bilaterally. HEART: Shows S1, S2 clear. ABDOMEN: Soft, nontender, nondistended. No palpable organomegaly is noted. No rebound or guarding demonstrated. BACK: Shows spine grossly in the midline. Normal appearing thoracic kyphosis and lumbar lordotic curvature is slightly flattened. Lumbar paraspinous muscle shows symmetrical on inspection, with palpation shows some moderate tenderness diffusely bilaterally without radiation. The patient shows good rotational motion of lumbar spine, both laterally as well as extension and flexion without significant pain reported. No tenderness over the sacrum or sacroiliac regions. EXTREMITIES: The patient's lower extremities show deep tendon reflexes at 1+ in the patellar and tendo calcaneus tendons. Motor exam is strong with 5/5 dorsiflexion, extension and equal bilaterally. Peripheral pulses are 1+ posterior tibia. No peripheral edema is noted. Options were discussed with the patient. The patient's old chart was reviewed as her current medication regimen updated. Current review of systems updated today as well. We will proceed with a lumbar epidural steroid injection today with fluoroscopic guidance. Risks were again discussed including, but not limited to bleeding, infection, possibility of epidural hematoma, subsequent neurologic compromise, dural puncture headache, spinal cord and/or nerve damage, side effects of steroid medication and poor results regarding pain control. The patient understands and wished to proceed. The patient to return to clinic in approximately 2 weeks for followup, was counseled on return appointment, activity level and side effects to be aware of. DIAGNOSES: Lumbar radiculopathy with lumbar spinal stenosis, lumbar degenerative disk disease. PROCEDURE: Lumbar epidural steroid injection, translaminar approach L4-L5 level using C-arm fluoroscopic guidance under sterile prep and drape using local anesthetic. MEDICATION INJECTED: A total of 120 mg Depo-Medrol plus 10 mL of preservative-free normal saline and 2 mL of Isovue contrast. CONDITION AT DISCHARGE: Stable. The patient tolerated the procedure well, had no complications. JUANA PATEL MD DR: MARC/erik JOB#: [id number] / [id number]
== END | disposition home or self-care (01) ==
LOC: PNCL 09:23
PROVIDERS: ATTEND Anesthesiology
DX: M51.16 Intervertebral disc disorders with radiculopathy, lumbar region (principal); M48.061 Spinal stenosis, lumbar region without neurogenic claudication; M50.10 Cervical disc disorder with radiculopathy, unspecified cervical region; Z88.6 Allergy status to analgesic agent; Z88.8 Allergy status to other drugs, medicaments and biological substances
CPT/HCPCS: 62323; J1030; J1040; Q9965

== ENCOUNTER → 2018-09-16 | Outpatient (CLI) | payer MEDICARE, BC ==
[~2018-09-16] MED LIST changes: -BIOT300T2 PO; +BIOT300T4 PO
--- NOTE | 2018-09-17 04:37 | PAIN ---
DATE OF SERVICE: 09/16/2018 DIAGNOSES: 1. Cervical radiculopathy with cervical degenerative disk disease. 2. Lumbar radiculopathy with lumbar degenerative disk disease with lumbar spinal stenosis. HISTORY OF PRESENT ILLNESS: The patient is a 73-year-old female who returns for followup status post cervical and lumbar epidural steroid injections, most recently lumbar injection 08/19/2018. The patient did well with this, but reports she had a fall in about 2 days after the injection where she was doing much better about 75% improvement until that time, the pain returned fairly quickly in the low back and right leg and she returns today. The patient reports the pain is becoming more constant now, shooting, radiating right posterior gluteus, posterior lateral thigh, lateral anterior thigh, anterior medial thigh, medial lower leg into the calf on the right side as well, worse with walking, standing, change in positions, it is waking her from sleep sporadically, but not every night. The patient reports pain is a 5-6 on a scale of 10 at its worst, 4-5 on average and a 4 at its least and is a 4 today. The patient reports no new motor or sensory deficits, no new bowel or bladder incontinence or other complaints. Prior to that, she was doing very well for the first few days, did distance walking and doing activities with mountaineering and household activities with greater ease and comfort. PHYSICAL EXAMINATION: VITAL SIGNS: Today, the patient's blood pressure 147/94, pulse 70, respirations 18, temperature 98.6 degrees Fahrenheit, height is 5 feet 1 inch, weight is 141 pounds. GENERAL: The patient is awake, alert, oriented, appropriate, very pleasant demeanor. HEENT: Head shows normocephalic and atraumatic. Extraocular movements are intact and symmetrical. Oral cavity: Mucous membranes moist and pink. Dentition is intact. NECK: Shows anterior throat supple without palpable lymphadenopathy noted. Swallow reflex symmetrical. CHEST: Shows normal on inspection. Breath sounds are clear to auscultation bilaterally. HEART: Shows S1, S2 clear. No murmurs auscultated. ABDOMEN: Soft, nontender, nondistended. No palpable organomegaly is noted. No rebound or guarding demonstrated. BACK: Shows spine grossly in the midline. Normal appearing thoracic kyphosis and lumbar lordotic curvature. Lumbar paraspinous muscle shows symmetrical on inspection, with palpation shows some moderate tenderness diffusely bilaterally in the lumbar paraspinous muscles, but only diffusely without radiation. The patient has good rotational motion of lumbar spine, both laterally as well as extension and flexion without difficulty. EXTREMITIES: The patient's lower extremities show deep tendon reflexes at 1+ in the patellar and tendo calcaneus tendons are equal. Motor exam is strong with 5/5 dorsiflexion, extension, quadriceps and hamstring flexion and symmetrical. Peripheral pulses are 1+ posterior tibial. No peripheral edema is noted. Options were discussed with the patient. The patient's old chart was reviewed as her current medication regimen updated. Current review of systems updated today as well. We will proceed with a first in this series of lumbar epidural steroid injection today with fluoroscopic guidance. Risks were again discussed including, but not limited to bleeding, infection, possibility of epidural hematoma, subsequent neurologic compromise, dural puncture, headaches, spinal cord and/or nerve damage, side effects of steroid medication and poor results regarding pain control. The patient understands and wished to proceed. The patient to return to clinic in approximately 2 weeks for followup. She was counseled as to return appointment, activity level and side effects to be aware of. DIAGNOSES: Lumbar radiculopathy with lumbar degenerative disk disease, lumbar spinal stenosis. PROCEDURE: Lumbar epidural steroid injection, translaminar approach L4-L5 level using C-arm fluoroscopic guidance under sterile prep and drape using local anesthetic. MEDICATION INJECTED: A total of 120 mg Depo-Medrol plus 10 mL of preservative-free normal saline and 2 mL of Omnipaque for contrast. CONDITION AT DISCHARGE: Stable. The patient tolerated procedure well, had no complications. JUANA PATEL MD DR: MARC/erik JOB#: [id number] / [id number]
== END | disposition home or self-care (01) ==
LOC: PNCL 09:14
PROVIDERS: ATTEND Anesthesiology
DX: M51.16 Intervertebral disc disorders with radiculopathy, lumbar region (principal); M48.061 Spinal stenosis, lumbar region without neurogenic claudication; M50.10 Cervical disc disorder with radiculopathy, unspecified cervical region; Z88.6 Allergy status to analgesic agent; Z88.8 Allergy status to other drugs, medicaments and biological substances
CPT/HCPCS: 62323; J1030; J1040; Q9965

== ENCOUNTER → 2018-10-06 | Outpatient (CLI) | payer MEDICARE, BC ==
--- NOTE | 2018-10-06 20:37 | PAIN ---
DATE OF SERVICE: 10/06/2018 DIAGNOSES: 1. Lumbar radiculopathy with lumbar degenerative disk disease and lumbar spinal stenosis. 2. Cervical radiculopathy with cervical degenerative disk disease. HISTORY OF PRESENT ILLNESS: The patient is a 73-year-old female who returns for followup status post lumbar epidural steroid injection x 1 on 09/16/2018. The patient did very well with this with approximately 50% improvement in the back and legs. She is having some pain returning in the back on the right side, right posterior gluteus, posterolateral thigh, lateral anterior thigh, anterior medial thigh, medial lower leg on the right side and in the low back on the left side as well. It is aching, but not radiating. The patient reports she has some nerve pain in her neck and shoulder as well as in her right arm and hand aching, constant with some muscle spasms of the right leg with a cramping sensation, also radiating pain. The patient reports it is a 9 on a scale of 10 at its worst, 5-6 on average, 5 at its least and is a 6 today. The patient reports it is worse with activity, but initially, she was doing quite a bit better with increasing her activity, standing and walking for greater distances and is sleeping better at night. Now, the pain is beginning to return again in the low back, right lower extremity and also into the low back bilaterally, right and left. The patient reports no new motor or sensory deficits, no bowel or bladder incontinence. PHYSICAL EXAMINATION: VITAL SIGNS: The patient's blood pressure 133/88, pulse 62, respirations 18, temperature is 98.5 degrees Fahrenheit, weight is 147 pounds. GENERAL: The patient is awake, alert, oriented, appropriate, very pleasant demeanor. HEENT: Head shows normocephalic, atraumatic. Extraocular movements are intact and symmetrical. Oral cavity: Mucous membranes moist and pink. Dentition is intact. NECK: Shows anterior throat supple without palpable lymphadenopathy noted. Swallow reflex is symmetrical. CHEST: Shows normal on inspection. Breath sounds clear to auscultation bilaterally. HEART: Shows S1, S2 clear. No murmurs auscultated. ABDOMEN: Soft, nontender, nondistended. No palpable organomegaly is noted. No rebound or guarding demonstrated. BACK: Shows spine grossly in the midline. Normal appearing thoracic kyphosis and lumbar lordotic curvature. Lumbar paraspinous musculature shows symmetrical on inspection, with palpation shows some moderate tenderness in the inferior aspect of the paraspinous muscles, right and left with some minor tenderness on the sacrum with deep palpation but without radiation. The patient's cervical paraspinous musculature shows symmetrical on inspection and palpation shows some moderate tenderness diffusely in the inferior aspect of the cervical paraspinous muscles, but only diffusely without significant radiation. The patient has good rotational motion of the cervical spine, both laterally as well as extension and flexion without significant difficulty as well. EXTREMITIES: The patient's upper extremities show deep tendon reflexes 2+ in the biceps and triceps tendons. Motor exam is strong with algorithm developer strength rated at 5/5 as is biceps and triceps flexion. The patient's lower extremities show deep tendon reflexes at 1+ in the patellar and tendo-calcaneus tendons. Motor exam is strong with 5/5 dorsiflexion, extension, quadriceps and hamstring flexion and symmetrical. Peripheral pulses are 1+ posterior tibial and 2+ in the radial distribution. Options were discussed with the patient. The patient's old chart was reviewed as her current medication regimen and updated. Current review of systems is updated today as well. We will proceed with a second in a series of lumbar epidural steroid injection today with fluoroscopic guidance. Risks were again discussed including, but not limited to bleeding, infection, possibility of epidural hematoma, subsequent neurological compromise, dural puncture, headaches, spinal cord and/or nerve damage, side effects of steroid medication and poor results regarding pain control. The patient understands and wished to proceed. The patient to return to clinic in approximately 2 weeks for followup, was counseled as to return appointment, activity level and side effects to be aware of. DIAGNOSES: Lumbar radiculopathy with lumbar degenerative disk disease, lumbar spinal stenosis. PROCEDURE: Lumbar epidural steroid injection, translaminar approach, L4-L5 level using C-arm fluoroscopic guidance under sterile prep and drape using local anesthetic. MEDICATION INJECTED: A total of 120 mg Depo-Medrol plus 10 mL of preservative-free normal saline and 2 mL of Isovue for contrast. CONDITION AT DISCHARGE: Stable. The patient tolerated the procedure well, had no complications. JUANA PATEL MD DR: MARC/erik JOB#: [id number] / [id number]
== END | disposition home or self-care (01) ==
LOC: PNCL 09:44
PROVIDERS: ATTEND Anesthesiology
DX: M51.16 Intervertebral disc disorders with radiculopathy, lumbar region (principal); M48.061 Spinal stenosis, lumbar region without neurogenic claudication; M50.10 Cervical disc disorder with radiculopathy, unspecified cervical region; Z88.6 Allergy status to analgesic agent; Z88.8 Allergy status to other drugs, medicaments and biological substances
CPT/HCPCS: 62323; J1030; J1040; Q9965

== ENCOUNTER → 2019-05-27 | Outpatient (CLI) | payer MEDICARE, BC ==
[~2019-05-27] MED LIST changes: -IOHEXOL 180 MG/ML 10 ML VIAL. ONE; -methylPREDNISolone ACETATE 40 MG/ML VIAL. ONE; -methylPREDNISolone ACETATE 80 MG/ML VIAL. ONE
--- NOTE | 2019-05-27 18:39 | KCIC ---
Bilateral digital screening mammograms: Reason for examination: Routine screening. Comparison is made to previous studies dated 05/25/2018 and 05/02/2017. Interpretation was made with the benefit of CAD. The skin and nipples show no abnormalities. No abnormal axillary lymph nodes are seen. The breast parenchyma is heterogeneously dense. (Breast density: Category C) There are no dominant masses, suspicious calcifications or architectural distortion. Benign appearing calcifications are again seen. Impression: No evidence of malignancy. Recommend routine screening. Your patient's mammogram demonstrates that she has dense breast tissue (breast density category C or D), which could hide abnormalities, and if she has other risk factors for breast cancer that have been identified, she might benefit from supplemental screening tests that may be suggested by you as her ordering physician. Dense breast tissue, in and of itself, is a relatively common condition. Therefore, this information is not provided to cause undue concern, but rather to raise your awareness and to promote discussion with your patient regarding the presence of other risk factors, in addition to dense breast tissue. Your patient's mammography results will be sent to her. BI-RADS Category 2: Benign. "Our facility is accredited by the [employer] Mammography [employer]." This patient's information has been entered into a reminder system for the patient to be notified with the results of her examination and a target date for the next mammogram. Electronically signed by: Francesca Ojeda MD (05/27/2019 6:36 PM) [id number]
== END | disposition home or self-care (01) ==
LOC: KCIC MAMMO 10:59
PROVIDERS: ATTEND Family Medicine
DX: Z12.31 Encounter for screening mammogram for malignant neoplasm of breast (principal); N64.89 Other specified disorders of breast
CPT/HCPCS: 77067

== ENCOUNTER → 2020-05-29 | Outpatient (CLI) | payer MEDICARE, BC ==
[~2020-05-29] MED LIST changes: +ZINC50TA10 PO; -ZINC50TA2 PO
--- NOTE | 2020-05-29 18:49 | KCIC ---
BILATERAL SCREENING MAMMOGRAM, 3-D History: Routine screening. Comparison: Bilateral mammogram May 27, 2019 and prior years. Technique: MLO and CC digital tomosynthesis (3D) images obtained. Radiologist reviewed these images on dedicated workstation. Findings: Breast Tissue Density C : The breasts are heterogeneously dense, which may obscure small masses. Bilateral microcalcifications are stable. There are no dominant masses, suspicious microcalcifications or architectural distortion. IMPRESSION: No mammographic evidence of malignancy. Recommend routine screening. BI-RADS category 2: Benign findings. The images were reviewed with computer-aided detection. Patient information is entered into reminder system with a target due date for the next screening mammogram. Mammography is the most sensitive method for finding small breast cancers, but it does not detect them all and is not a substitute for careful clinical examination. A negative mammogram does not negate a clinically suspicious finding and should not result in delay in biopsying a clinically suspicious abnormality. "Our facility is accredited by the [employer] Mammography Program." Electronically signed by: Chano Brady MD (05/29/2020 6:45 PM) [facility]
== END ==
LOC: KCIC MAMMO 09:55
PROVIDERS: ATTEND Family Medicine
DX: Z12.31 Encounter for screening mammogram for malignant neoplasm of breast (principal)
CPT/HCPCS: 77063; 77067

== ENCOUNTER → 2020-12-08 | Outpatient (CLI) | payer MEDICARE, BC ==
[~2020-12-08] MED LIST changes: -CLIN150C14 PO; +CLIN150C15 PO
--- NOTE | 2020-12-08 13:09 | KCIC ---
MR LUMBAR SPINE WO [id number] History: Spinal stenosis history of pain injections since 2002, patient feels deep ache in back, both buttocks, and Lt leg. Technique: Multiplanar, multi sequential MR imaging was performed of the lumbar spine without intrave nous contrast. Comparison: 07/31/2018 Findings: Similar grade 1 anterolisthesis of L4 over L5 and lesser extent at L3 over L4. No acute fracture. Nor mal vertebral body height. Conus terminalis at L1 level. Redemonstrated multilevel degenerative changes with the disc desiccation and disc space narrowing, wo rst at L3-4 and L4-5. Specific level as follow: T12-L1, L1-L2: No canal stenosis or neuroforaminal narrowing. L2-L3: Diffuse disc bulge with left paracentral disc protrusion. Bilateral facet arthropathy and liga mentum flavum thickening. Moderate canal stenosis, worsened since prior exam. [id number] left n euroforaminal narrowing. L3-4: Diffuse disc bulge with bilateral facet arthropathy and ligamentum flavum hypertrophy, causing severe canal stenosis, slightly worsened since prior exam. Moderate bilateral neuroforaminal narrowin g, unchanged. L4-5: Diffuse disc bulge with bilateral facet arthropathy and ligamentum flavum thickening, causing s evere canal stenosis, unchanged since prior exam. Moderate to severe left neuroforaminal narrowing, e ncroaching left exiting nerve root, similar to prior exam. Mild right neuroforaminal narrowing. L5-S1: No canal stenosis or neuroforaminal narrowing. IMPRESSION: 1. Redemonstrated multilevel degenerative changes in lumbar spine, worst at L3-4 and L4-5 with severe canal stenosis, slightly worsened at L3-4 level. 2. Similar moderate to severe left neuroforaminal narrowing at L4-5, encroaching left existing nerve root. 3. Moderate canal stenosis at L2-3, worsened since prior exam. Electronically signed by: Charla Whitlock MD (12/08/2020 1:07 PM) [id number]
== END ==
LOC: KCIC MRI 12:27
PROVIDERS: ATTEND Family Medicine
DX: M47.816 Spondylosis without myelopathy or radiculopathy, lumbar region (principal); M48.062 Spinal stenosis, lumbar region with neurogenic claudication
CPT/HCPCS: 72148

== ENCOUNTER → 2020-12-28 | Outpatient (CLI) | payer MEDICARE, BC ==
[~2020-12-28] MED LIST changes: +ALEN35TA47 PO; -CLIN150C15 PO; +CLIN150C16 PO; +DILT60TA3 PO; +FAMO-152 PO; +IOHEXOL 180 MG/ML 10 ML VIAL. ONE; +TUME1CAP PO; +VITA1TAB19 PO; +methylPREDNISolone ACETATE 40 MG/ML VIAL. ONE; +methylPREDNISolone ACETATE 80 MG/ML VIAL. ONE
--- NOTE | 2020-12-28 11:58 | PDOC ---
Progress Note - Pain Clinic Date of Service: DOS: DATE: 12/28/20 TIME: 11:54 Diagnosis: Dx: Lumbar radiculopathy with lumbar degenerative disease lumbar spinal stenosis Cervical radiculopathy with cervical degenerative disc disease History or Present Illness: HPI: 75-year-old female returns for follow-up status post lumbar epidural steroid injections and cervical epidural steroid ejections last seen 2019 October 06. Patient reports he did very well after last injection with at 75% improvement and did well for about a year or so over the past year the pain is been returning in the low back and left lower extremity posterior gluteus posterior lateral thigh anterior thigh medial thigh medial lower leg also patient reports pain the base of the neck specially on the right side with rotation of motion and radiating to the right arm patient reports her pain is most noticeable with standing walking changing positions also sitting or driving but her chief complaint is low back and left lower extremity pain. Patient reports her pain is a 6-7 on scale 10 is worse with the past week 6-7 on average and 3 when she is sitting still not moving patient reports it is a 6 today. Patient reports no new motor or sensory deficits patient did have a new MRI scan dated December 08, 2020 showing multilevel degenerative changes most significant L3-4 and L4-5 with severe central stenosis slightly worse at the L3-4 level with moderate to severe left neuroforaminal narrowing at L4-5 encroaching on the left existing nerve roots. Moderate stenosis at L2-3 worsened since prior exam as well. Patient reports also arthritic pain in the knees bilateral ankles shoulders and elbows worsens discontinuing naproxen by her primary care physician several months ago. Physical Exam: VS: Blood pressure is 136/74 pulse 53 respirations 18 temperature 98.4 degrees Fahrenheit weight is 146 pounds PE: PHYSICAL EXAMINATION: GENERAL: The patient is awake, alert, oriented, appropriate, very pleasant in demeanor. HEENT: Shows normocephalic, atraumatic. Extraocular movements are intact and symmetrical. Oral cavity: Mucous membranes moist and pink. NECK: Shows anterior throat supple without palpable lymphadenopathy noted. Swallow reflex symmetrical. CHEST: Shows normal on inspection. Breath sounds are clear bilaterally, no rales rhonchi or wheezes auscultated. HEART: Shows S1, S2 clear. No murmurs auscultated. ABDOMEN: Soft, nontender, nondistended, obese. No palpable organomegaly is noted. No rebound or guarding demonstrated. BACK: Shows spine grossly in the midline. Normal-appearing cervical lordotic curvature. Cervical paraspinous muscles show symmetrical inspection, on palpation some moderate tenderness diffusely more in the right than the left in the inferior aspect of the cervical paraspinous musculature as well as the superior medial trapezius on the right but with full rotation of motion both laterally as well as full extension full forward flexion without significant increase in pain. There is slightly increased thoracic kyphosis, some minor flattening of the lumbar lordotic curvature. Lumbar paraspinous muscles show symmetrical on inspection, on palpation shows some moderate tenderness diffusely throughout the upper, middle and lower distribution of the paraspinous muscles bilaterally and also into the lower thoracic paraspinous musculature, firm and tender, but without specific trigger points, without radiation of pain. The patient has good rotational motion of the lumbar spine, both laterally as well as extension and flexion without significant difficulty. No tenderness over the spinous processes, sacrum or sacroiliac regions. EXTREMITIES: Lower extremities show deep tendon reflexes 1+ in the patellar and tendo calcaneus tendons. Motor exam is 5 on a scale of 5 with right dorsiflexion, extension, quadriceps and hamstring flexion and 5/5 on the left. Peripheral pulses are 1+ posterior tibial. No peripheral edema is noted bilaterally. Lower extremities are warm and dry to touch, equal in color and appearance. 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 SKIN: Shows warm and dry, good turgor. No edema. No sores, rashes or bruising throughout. Procedure: Procedure: Options were discussed with the patient. Patient's old chart reviews her current medication regimen updated current view of systems updated today as well. We will proceed with a lumbar epidural steroid injection today with f luoroscopic guidance. Risks were discussed including but not limited to: Bleeding, infection, possibility of epidural hematoma and subsequent neurological compromise, dural puncture, headaches, spinal cord and/or nerve damage, side effects of steroid medication, and poor results regarding pain control. Patient understands and wished to proceed. Patient will return to clinic in approximately 2 weeks for follow-up, was counseled as to return appointment activity level and side effects beware. Also start patient on meloxicam 15 mg once daily. Patient was given instructions well side effects beware with the medication. Medication Injected: Med Injected: Procedure is lumbar epidural steroid injection under local anesthetic using sterile prep and drape at the L4-5 level using C-arm fluoroscopic guidance in both AP and lateral views medications injected is 120 mg Depo-Medrol +10mL preservative-free normal saline and 2 mL contrast- condition at discharge is stable patient tolerated procedure well had no complications. Condition at Discharge: Condition at Discharge: Condition at discharge stable, patient tolerated procedure well and had no complications. JUANA PATEL MD Dec 28, 2020 11:58
--- NOTE | 2020-12-28 11:59 | PDOC4 ---
Procedure Note: Procedure Note: Patient was consented for lumbar epidural steroid injection. Risks were discussed including but not limited to: Bleeding, infection, possibility of epidural hematoma and subsequent neurological compromise, dural puncture, headaches, spinal cord and/or nerve damage, side effects of steroid medication, and poor results regarding pain control. Patient understands and wished to proceed. Procedure is lumbar epidural steroid injection under local anesthetic using sterile prep and drape at the L4-5 level using C-arm fluoroscopic guidance in both AP and lateral views medications injected is 120 mg Depo-Medrol +10mL preservative-free normal saline and 2 mL contrast- condition at discharge is stable patient tolerated procedure well had no complications. JUANA PATEL MD Dec 28, 2020 11:59
== END | disposition home or self-care (01) ==
LOC: PNCL 10:54
PROVIDERS: ATTEND Anesthesiology
DX: M51.16 Intervertebral disc disorders with radiculopathy, lumbar region (principal); M48.061 Spinal stenosis, lumbar region without neurogenic claudication; M50.10 Cervical disc disorder with radiculopathy, unspecified cervical region; Z79.899 Other long term (current) drug therapy; Z72.89 Other problems related to lifestyle; Z88.8 Allergy status to other drugs, medicaments and biological substances
CPT/HCPCS: 62323; J1030; J1040; Q9965

== ENCOUNTER → 2021-01-11 | Outpatient (CLI) | payer MEDICARE, BC ==
[~2021-01-11] MED LIST changes: +ALEN35TA45 PO; -ALEN35TA47 PO; +CLIN150C15 PO; -CLIN150C16 PO
--- NOTE | 2021-01-11 11:09 | PDOC4 ---
Procedure Note: ICD 10 Code: ICD 10 Code: M 54.16 M 48.07 M 51.36 Procedure Note: Patient was consented for lumbar epidural steroid injection. Risks were discussed including but not limited to: Bleeding, infection, possibility of epidural hematoma and subsequent neurological compromise, dural puncture, headaches, spinal cord and/or nerve damage, side effects of steroid medication, and poor results regarding pain control. Patient understands and wished to proceed. Procedure is lumbar epidural steroid injection under local anesthetic using sterile prep and drape at the L4-5 level using C-arm fluoroscopic guidance in both AP and lateral views medications injected is 120 mg Depo-Medrol +10mL pre servative-free normal saline and 2 mL contrast- condition at discharge is stable patient tolerated procedure well had no complications. JUANA PATEL MD Jan 11, 2021 11:09
--- NOTE | 2021-01-11 11:09 | PDOC ---
Progress Note - Pain Clinic Date of Service: DOS: DATE: 01/11/21 TIME: 11:04 Diagnosis: Dx: Lumbar radiculopathy with lumbar degenerative disease and lumbar spinal stenosis Cervical radiculopathy with cervical degenerative disc disease History or Present Illness: HPI: 75-year-old female returns for follow-up status post lumbar epidural steroid injection x1. Patient with 85% improvement in the low back and left lower extremity pain patient reports the pain is returning now however in the low back and left lower extremity posterior gluteus posterior thigh lateral thigh anterior thigh there is a lot less intense patient reports is a 3 on scale 10 is worse over the past 2-3 on average at 1 its least and is a 2 today aching and dull we had new medication added of meloxicam which she is doing much better with the foot pain that she was having as well as the deep ache in her back. Patient reports new pain in the buttocks on the right side which is new from her last visit and radiate into the posterior hip itself but only intermittently. Patient reports no new deficits no bowel or bladder incontinence. Patient reports he continues not to sleep very well but is due to insomnia. Physical Exam: VS: Blood pressure 3 pulse 57 respirations 18 temperature 90.7 F height is 5 foot 1 inches weight is 145 pounds PE: PHYSICAL EXAMINATION: GENERAL: The patient is awake, alert, oriented, appropriate, very pleasant in demeanor HEENT: Shows normocephalic, atraumatic. Extraocular movements are intact and symmetrical. NECK: Shows anterior throat supple without palpable lymphadenopathy noted. Swallow reflex symmetrical. CHEST: Shows normal on inspection. Breath sounds are clear bilaterally, no rales rhonchi wheezes auscultated. HEART: Shows S1, S2 clear. No murmurs auscultated. ABDOMEN: Soft, nontender, nondistended, obese. BACK: Shows spine grossly in the midline. Normal-appearing cervical lordotic curvature. There is slightly increased thoracic kyphosis, some minor flattening of the lumbar lordotic curvature. Lumbar paraspinous muscles show symmetrical on inspection, on palpation shows some moderate tenderness diffusely throughout the upper, middle and lower distribution of the paraspinous muscles, but without specific trigger points, without radiation of pain. The patient has good rotational motion of the lumbar spine, both laterally as well as extension and flexion without significant difficulty. EXTREMITIES: Lower extremities show deep tendon reflexes 2+ in the patellar and tendo calcaneus tendons. Motor exam is 5 on a scale of 5 with right dorsiflexion, extension, quadriceps and hamstring flexion and 5/5 on the left. Peripheral pulses are 1 posterior tibial. No peripheral edema is noted bilaterally. Lower extremities are warm and dry to touch, equal in color and appearance. SKIN: Shows warm and dry, good turgor. No edema. No sores, rashes or bruising throughout. Procedure: Procedure: Options discussed with patient. Patient chart was reviewed as her current medication regimen updated current review of systems updated today as well. We will proceed with a second in the series lumbar epidural steroid injection stable fluoroscopic guidance. Risks were discussed including but not limited to: Bleeding, infection, possibility of epidural hematoma and subsequent neurological compromise, dural puncture, headaches, spinal cord and/or nerve damage, side effects of steroid medication, and poor results regarding pain control. Patient understands and wished to proceed. She will return to clinic in approximate 2 weeks for follow-up, was counseled as return appointment active level and side effects to be aware of. Medication Injected: Med Injected: Procedure is lumbar epidural steroid injection under local anesthetic using sterile prep and drape at the L4-5 level using C-arm fluoroscopic guidance in [place] th AP and lateral views medications injected is 120 mg Depo-Medrol +10mL preservative-free normal saline and 2 mL contrast- condition at discharge is stable patient tolerated procedure well had no complications. Condition at Discharge: Condition at Discharge: Condition at discharge stable, patient alert the procedure well and had no complications. JUANA PATEL MD Jan 11, 2021 11:09
== END | disposition home or self-care (01) ==
LOC: PNCL 10:08
PROVIDERS: ATTEND Anesthesiology
DX: M51.16 Intervertebral disc disorders with radiculopathy, lumbar region (principal); M48.061 Spinal stenosis, lumbar region without neurogenic claudication; M50.10 Cervical disc disorder with radiculopathy, unspecified cervical region; Z79.899 Other long term (current) drug therapy; Z72.89 Other problems related to lifestyle; Z88.8 Allergy status to other drugs, medicaments and biological substances
CPT/HCPCS: 62323; J1030; J1040; Q9965

== ENCOUNTER → 2021-01-18 | Outpatient (CLI) | payer MEDICARE, BC ==
[~2021-01-18] MED LIST changes: -ALEN35TA45 PO; +ALEN35TA47 PO; -CLIN150C15 PO; +CLIN150C16 PO; -IOHEXOL 180 MG/ML 10 ML VIAL. ONE; -methylPREDNISolone ACETATE 40 MG/ML VIAL. ONE; -methylPREDNISolone ACETATE 80 MG/ML VIAL. ONE
--- NOTE | 2021-01-18 13:28 | KCIC ---
EXAM: PA and Lateral Views of the Chest DATE: 01/18/2021 11:17 AM INDICATION: Reason: Rib pain / Spl. Instructions: Pain under Lt breast 2-3 weeks. / History: COMPARISON: No Prior FINDINGS: The heart is not enlarged. Aorta is tortuous. Minimal left lung base opacities may represent atelectasis. No pleural effusion or pneumothorax. IMPRESSION: Minimal left lung base opacities may represent atelectasis. Electronically signed by: Isaac Kim MD (01/18/2021 1:25 PM) [id number]
== END ==
LOC: KCIC 11:13
PROVIDERS: ATTEND Family Medicine
DX: R07.81 Pleurodynia (principal)
CPT/HCPCS: 71046

== ENCOUNTER → 2021-03-29 | Outpatient (CLI) | payer MEDICARE, BC ==
[~2021-03-29] MED LIST changes: +IOHEXOL 300 MG/ML 100ML VIAL. IV ONE
--- NOTE | 2021-03-29 14:29 | KCIC ---
CT THORAX W History: Left rib pain since November. Comparison: CT chest 03/29/2016. Technique: CT of the chest with intravenous contrast. Multiplanar reconstruction. Findings: Pulmonary arteries: No pulmonary embolism. Aorta and great vessels: No aneurysm or dissection of the aortic arch or thoracic aorta. Mild atheros clerotic calcification. Thyroid: No significant abnormalities. Mediastinum and kerry: No mediastinal masses or adenopathy is seen. Esophagus: The visualized esophagus is normal. Heart: The heart is normal in size. There is no pericardial effusion. Moderate coronary calcification . Airways, Lungs, Pleura: Airways are clear. No significant consolidation. Small calcified granuloma le ft posterior costophrenic angle measures 4 mm. No pleural effusion. Upper abdomen: Limited evaluation of the upper abdomen is unremarkable. Osseous structures and soft tissues: Within normal limits for age. No rib or chest wall lesion identi fied. Impression: 1. No acute findings in the chest. No rib or chest wall lesion identified. ------ Exposure: One or more of the following individualized dose reduction techniques were utilized for thi s examination: 1. Automated exposure control 2. Adjustment of the mA and/or kV according to patient size 3. Use of iterative reconstruction technique. Electronically signed by: Darren Regalado MD (03/29/2021 2:26 PM) [facility]
== END ==
LOC: KCIC CT 12:34
PROVIDERS: ATTEND Family Medicine
DX: R07.81 Pleurodynia (principal); J84.10 Pulmonary fibrosis, unspecified; I25.10 Atherosclerotic heart disease of native coronary artery without angina pectoris
CPT/HCPCS: 71260; Q9967

== ENCOUNTER → 2021-07-06 | Outpatient (CLI) | payer MEDICARE, BC ==
[~2021-07-06] MED LIST changes: -IOHEXOL 300 MG/ML 100ML VIAL. IV ONE
--- NOTE | 2021-07-06 14:24 | KCIC ---
Bilateral digital screening mammograms with 3-D tomosynthesis: Reason for examination: Routine screening. Comparison is made to previous studies dated back to 04/23/2016. Bilateral mammograms in CC and oblique projections were obtained with 2-D imaging and 3-D tomosynthes is imaging on a Siemens Inspiration unit and reviewed on the workstation. Interpretation was made wit h the benefit of CAD. The skin and nipples show no abnormalities. No abnormal axillary lymph nodes are seen. The breast par enchyma is heterogeneously dense. (Breast density: Category C.) There are no dominant masses, suspici ous calcifications or architectural distortion. Benign calcifications are present. Impression: No evidence of malignancy. Recommend routine screening. Your patient's mammogram demonstrates that she has dense breast tissue (breast density category C or D), which could hide abnormalities, and if she has other risk factors for breast cancer that have bee n identified, she might benefit from supplemental screening tests that may be suggested by you as her ordering physician. Dense breast tissue, in and of itself, is a relatively common condition. Therefo re, this information is not provided to cause undue concern, but rather to raise your awareness and t o promote discussion with your patient regarding the presence of other risk factors, in addition to d ense breast tissue. Your patient's mammography results will be sent to her. BI-RAD Category 2: Benign. "Our facility is accredited by the [employer] Mammography Program." This patient's information has been entered into a reminder system for the patient to be notified wit h the results of her examination and a target date for the next mammogram. Electronically signed by: Francesca Ojeda MD (07/06/2021 2:22 PM) [id number]
== END ==
LOC: KCIC MAMMO 10:52
PROVIDERS: ATTEND Family Medicine
DX: Z12.31 Encounter for screening mammogram for malignant neoplasm of breast (principal)
CPT/HCPCS: 77063; 77067